=== PATIENT | female | born 1995 | race Caucasian/White ===

== ENCOUNTER 2019-06-07 10:30 | Inpatient (IN) ==
[2019-06-07] MEDS ORDERED: ONDANSETRON 4 MG/2 ML VIAL IV PRN (10:39)
[2019-06-07] MEDS ORDERED: MEPERIDINE 50 MG/1 ML VIAL IV PRN (10:39)
[2019-06-07] MEDS ORDERED: BUTORPHANOL 2 MG/ML VIAL IV PRN (10:39)
[2019-06-07 11:05] LABS: Basophils % 0.3 % (0.0-0.8); Eosinophils # 0.1 10*3/uL (0.0-0.87); Eosinophils % 0.9 % (0.00-10.9); Hematocrit 35.6 VOL% (35.7-47.0); Hemoglobin 11.7 GM/DL (12.0-16.0); Immature Granulocytes % 0.5 %; Immature Granulocytes Absolute 0.05 #; Lymphocytes % 18.8 % (21.3-54.2); Mean Corpuscular HGB Conc 32.9 GM/DL (32-36); Mean Corpuscular Volume 88.6 FL (87-102); Mean Platelet Volume 10.6 FL (9.6-12.0); Monocytes % 9.7 % (1.7-12.7); Neutrophils % 69.8 % (38.7-73.9); Platelet Count 263 T/CUMM (130-400); Red Blood Count 4.02 MC/CUMM (3.8-5.5); Red Cell Distribution Width 12.6 % (9.3-17.3); White Blood Count 10.6 T/CUMM (4-12)
[2019-06-07] MEDS: LACTATED RINGERS 1,000 ML IV SCH ×2 (19:19→20:53)
[2019-06-07] MEDS: OXYTOCIN/LR 20 UNIT/1,000 ML BAG IV SCH (19:19)
[2019-06-07] MEDS ORDERED: FAMOTIDINE 20 MG/2 ML VIAL IV ONE (19:51)
[2019-06-07] MEDS ORDERED: PROMETHAZINE 25 MG/1 ML VIAL IM ONE (19:51)
[2019-06-07] MEDS ORDERED: NALOXONE 0.4 MG/ML VIAL IV PRN (19:51)
[2019-06-07] MEDS ORDERED: CITRIC ACID/SODIUM CITRATE 30 ML UDCUP PO ONE (19:51)
[2019-06-07] MEDS ORDERED: hydrOXYzine HCL 25 MG/1 ML VIAL IM PRN (19:51)
[2019-06-07] MEDS ORDERED: ONDANSETRON 4 MG/2 ML VIAL IV ONE (19:51)
[2019-06-07] MEDS ORDERED: diphenhydrAMINE 50 MG/1 ML VIAL IV PRN ×2 (19:51)
[2019-06-07] MEDS ORDERED: ePHEDrine 50 MG/ML AMP IV PRN (19:51)
[2019-06-07] MEDS: fentaNYL 2 MCG/ROPIV 0.2% EPID 100 ML EPIDURAL SCH (20:53)
[2019-06-07 21:46] LABS: Apearance,Urine CLEAR (Clear); Bilirubin,Urine Negative (Negative); Blood, Urine Negative (Negative); Glucose,Urine (UA) Negative (Negative); Ketones,Urine Negative (Negative); Nitrite,Urine Negative (Negative); Protein,Urine Negative; Squamous Epithelial Cell,Urine Occasional /HPF (0-10); Urine Color Colorless (Yellow); Urine Specific Gravity 1.002 (1.001-1.035); Urine Urobilinogen < 2.0 EU/DL (0.2-1.0)
[2019-06-08] MEDS: LACTATED RINGERS 1,000 ML IV SCH (03:49)
[2019-06-08] MEDS ORDERED: METHYLERGONOVINE 0.2 MG/1 ML AMP ONE (05:57)
[2019-06-08] MEDS ORDERED: miSOPROStoL 200 MCG TABLET ONE (05:57)
[2019-06-08] MEDS ORDERED: CARBOPROST TROMETHAMINE 250 MCG/ML AMP IM ONE (05:57)
[2019-06-08] MEDS: fentaNYL 2 MCG/ROPIV 0.2% EPID 100 ML EPIDURAL SCH (06:16)
[2019-06-08] MEDS: OXYTOCIN/LR 20 UNIT/1,000 ML BAG IV SCH (09:34)
[2019-06-08] MEDS ORDERED: OXYTOCIN/LR 20 UNIT/1,000 ML BAG IV ONE (11:02)
[2019-06-08] MEDS ORDERED: BISACODYL 10 MG SUPP RECTAL PRN (11:02)
[2019-06-08] MEDS ORDERED: MEASLES/MUMPS/RUBELLA VACCINE 0.5 ML VIAL SUBCUT ONE (11:02)
[2019-06-08] MEDS ORDERED: WITCH HAZEL PADS 100/JAR TOP PRN (11:02)
[2019-06-08] MEDS ORDERED: HYDROCORTISONE 2.5% RECTAL CREAM 30 GM TUBE TOP PRN (11:02)
[2019-06-08] MEDS ORDERED: ONDANSETRON 4 MG/2 ML VIAL IV PRN (11:02)
[2019-06-08] MEDS ORDERED: DIPH/TET/ACEL PERT BOOSTER VACCINE 0.5 ML VIAL IM ONE (11:02)
[2019-06-08] MEDS ORDERED: oxyCODONE/ACETAMINOPHEN 5-325 MG TABLET PO PRN (11:02)
[2019-06-08] MEDS ORDERED: ACETAMINOPHEN 325 MG TABLET PO PRN (11:02)
[2019-06-08] MEDS ORDERED: BENZOCAINE 20%/MENTHOL 0.5% SPRAY 56 GM CAN TOP PRN (11:02)
[2019-06-08] MEDS ORDERED: LANOLIN 50% CREAM 0.3 OZ TUBE TOP PRN (11:02)
[2019-06-08] MEDS ORDERED: RHO(D) IMMUNE GLOBULIN 300 MCG SYRINGE IM ONE (11:02)
[2019-06-08] MEDS: IBUPROFEN 800 MG TABLET PO PRN ×2 (12:17→19:55)
[2019-06-08] MEDS: DOCUSATE SODIUM 100 MG CAPSULE PO SCH ×2 (19:56→21:53)
[2019-06-09 06:13] LABS: Basophils % 0.2 % (0.0-0.8); Eosinophils # 0.3 10*3/uL (0.0-0.87); Eosinophils % 1.6 % (0.00-10.9); Hematocrit 30.9 VOL% (35.7-47.0); Hemoglobin 10.4 GM/DL (12.0-16.0); Immature Granulocytes % 0.6 %; Immature Granulocytes Absolute 0.09 #; Lymphocytes # 2.3 10*3/uL (1.4-4.0); Lymphocytes % 14.9 % (21.3-54.2); Mean Corpuscular HGB Conc 33.7 GM/DL (32-36); Monocytes % 8.4 % (1.7-12.7); Neutrophils % 74.3 % (38.7-73.9); Platelet Count 203 T/CUMM (130-400); Red Blood Count 3.47 MC/CUMM (3.8-5.5); Red Cell Distribution Width 13.1 % (9.3-17.3); White Blood Count 15.3 T/CUMM (4-12)
[2019-06-09] MEDS: IBUPROFEN 800 MG TABLET PO PRN ×3 (09:40→23:49)
[2019-06-09] MEDS: DOCUSATE SODIUM 100 MG CAPSULE PO SCH ×2 (09:42→20:10)
[2019-06-09] MEDS: oxyCODONE/ACETAMINOPHEN 5-325 MG TABLET PO PRN (20:10)
[2019-06-10] MEDS: IBUPROFEN 800 MG TABLET PO PRN (06:47)
[2019-06-10] MEDS: oxyCODONE/ACETAMINOPHEN 5-325 MG TABLET PO PRN (06:47)
[2019-06-10 09:44] VITALS: BP 118/68
[2019-06-10] MEDS: DOCUSATE SODIUM 100 MG CAPSULE PO SCH (10:07)
== END 2019-06-10 11:00 | disposition home or self-care (01) | DRG 806 ==
LOC: N.LDOUT 10:30 → N.LD 10:32 → N.OB 06-08 17:11
PROVIDERS: ADMIT Obstetrics & Gynecology; ATTEND Obstetrics & Gynecology

== ENCOUNTER 2022-03-25 15:11 | Inpatient (IN) ==
[2022-03-25] MEDS ORDERED: CARBOPROST TROMETHAMINE 250 MCG/ML AMP IM PRN (15:18)
[2022-03-25] MEDS ORDERED: miSOPROStoL 200 MCG TABLET RECTAL PRN (15:18)
[2022-03-25] MEDS ORDERED: METHYLERGONOVINE 0.2 MG/1 ML AMP IM PRN (15:18)
[2022-03-25] MEDS ORDERED: TRANEXAMIC ACID 1,000 MG in SODIUM CHLORIDE 0.9% 100 ML IV PRN (15:18)
[2022-03-25] MEDS ORDERED: OXYTOCIN/LR 20 UNIT/1,000 ML BAG IV ONE ×2 (15:18→22:08)
[2022-03-25] MEDS ORDERED: ONDANSETRON 4 MG/2 ML VIAL IV PRN ×2 (15:18→22:08)
[2022-03-25] MEDS ORDERED: ePHEDrine 50 MG/ML VIAL IV PRN (15:20)
[2022-03-25] MEDS ORDERED: NALOXONE 0.4 MG/ML VIAL IV PRN (15:20)
[2022-03-25] MEDS ORDERED: LACTATED RINGERS 1,000 ML IV ONE (15:20)
[2022-03-25] MEDS ORDERED: FAMOTIDINE 20 MG/2 ML VIAL IV ONE (15:20)
[2022-03-25] MEDS ORDERED: ONDANSETRON 4 MG/2 ML VIAL IV ONE (15:20)
[2022-03-25] MEDS ORDERED: PROMETHAZINE 25 MG/1 ML VIAL IM ONE (15:20)
[2022-03-25] MEDS ORDERED: hydrOXYzine HCL 25 MG/1 ML VIAL IM PRN (15:20)
[2022-03-25] MEDS ORDERED: CITRIC ACID/SODIUM CITRATE 30 ML UDCUP PO ONE (15:20)
[2022-03-25] MEDS ORDERED: diphenhydrAMINE 50 MG/1 ML VIAL IV PRN ×2 (15:20)
[2022-03-25] MEDS ORDERED: fentaNYL 2 MCG/ROPIV 0.2% EPID 100 ML EPIDURAL SCH (15:30)
[2022-03-25] MEDS ORDERED: LACTATED RINGERS 1,000 ML IV SCH (15:30)
[2022-03-25] MEDS ORDERED: OXYTOCIN/LR 20 UNIT/1,000 ML BAG IV SCH (15:30)
[2022-03-25 15:38] LABS: Basophils % 0.2 % (0.0-0.8); Eosinophils # 0.1 10*3/uL (0.0-0.87); Eosinophils % 0.8 % (0.00-10.9); Hematocrit 35.1 VOL% (35.7-47.0); Hemoglobin 10.9 GM/DL (12.0-16.0); Immature Granulocytes % 0.5 %; Immature Granulocytes Absolute 0.05 #; Lymphocytes # 1.9 10*3/uL (1.4-4.0); Lymphocytes % 18.6 % (21.3-54.2); Mean Corpuscular HGB Conc 31.1 GM/DL (32-36); Mean Platelet Volume 11.2 FL (9.6-12.0); Monocytes # 0.9 10*3/uL (0.11-0.8); Monocytes % 9.3 % (1.7-12.7); Neutrophils % 70.6 % (38.7-73.9); Platelet Count 280 T/CUMM (130-400); Red Blood Count 4.28 MC/CUMM (3.8-5.5); Red Cell Distribution Width 14.7 % (9.3-17.3)
[2022-03-25 15:57] LABS: Alanine Aminotransferase 54 U/L (13-56); Albumin 2.6 G/DL (3.4-5.0); Alkaline Phosphatase 200 U/L (45-117); Aspartate Amino Transferase 24 U/L (0-37); Bilirubin,Total < 0.39 MG/DL (0.20-1.00); Blood Urea Nitrogen 9 MG/DL (7-18); Carbon Dioxide 25 MMOL/L (21-32); Chloride 105 MMOL/L (98-107); Glucose 82 MG/DL (74-106); Osmolality,Calculated 270.8 MOS/KG (273-304); Potassium 3.9 MMOL/L (3.5-5.1); Sodium 137 MMOL/L (136-145); Total Protein 7.6 G/DL (6.4-8.2)
[2022-03-25] MEDS ORDERED: TRANEXAMIC ACID 1,000 MG/10 ML VIAL ONE (21:33)
[2022-03-25] MEDS ORDERED: METHYLERGONOVINE 0.2 MG/1 ML AMP ONE (21:33)
[2022-03-25] MEDS ORDERED: SODIUM CHLORIDE 0.9% 0 ML IV ONE (21:33)
[2022-03-25] MEDS ORDERED: miSOPROStoL 200 MCG TABLET ONE (21:33)
[2022-03-25] MEDS ORDERED: CARBOPROST TROMETHAMINE 250 MCG/ML AMP IM ONE (21:34)
[2022-03-25 21:56] LABS: Cord Arterial Blood HCO3 20.8 MMOL/L
[2022-03-25 21:59] LABS: Cord Venous Blood HCO3 22.3 MMOL/L; Cord Venous Blood PCO2 38.2 MMHG; Cord Venous Blood PO2 33.2
[2022-03-25] MEDS ORDERED: RHO(D) IMMUNE GLOBULIN 300 MCG SYRINGE IM ONE (22:08)
[2022-03-25] MEDS ORDERED: LANOLIN 50% CREAM 0.3 OZ TUBE TOP PRN (22:08)
[2022-03-25] MEDS ORDERED: BISACODYL 10 MG SUPP RECTAL PRN (22:08)
[2022-03-25] MEDS ORDERED: MEASLES/MUMPS/RUBELLA VACCINE 0.5 ML VIAL SUBCUT ONE (22:08)
[2022-03-25] MEDS ORDERED: BENZOCAINE 20%/MENTHOL 0.5% SPRAY 56 GM CAN TOP PRN (22:08)
[2022-03-25] MEDS ORDERED: HYDROCORTISONE 2.5% RECTAL CREAM 30 GM TUBE TOP PRN (22:08)
[2022-03-25] MEDS ORDERED: DIPH/TET/ACEL PERT BOOSTER VACCINE 0.5 ML VIAL IM ONE (22:08)
[2022-03-25] MEDS ORDERED: ACETAMINOPHEN 325 MG TABLET PO PRN (22:08)
[2022-03-25] MEDS ORDERED: WITCH HAZEL PADS 100/JAR TOP PRN (22:08)
[2022-03-26] MEDS: IBUPROFEN 800 MG TABLET PO PRN ×3 (00:18→20:31)
[2022-03-26] MEDS: oxyCODONE/ACETAMINOPHEN 5-325 MG TABLET PO PRN ×4 (01:48→21:30)
[2022-03-26 05:24] LABS: Basophils % 0.2 % (0.0-0.8); Eosinophils % 0.3 % (0.00-10.9); Hematocrit 27.9 VOL% (35.7-47.0); Hemoglobin 8.7 GM/DL (12.0-16.0); Immature Granulocytes % 0.8 %; Immature Granulocytes Absolute 0.09 #; Lymphocytes # 1.2 10*3/uL (1.4-4.0); Lymphocytes % 10.3 % (21.3-54.2); Mean Corpuscular HGB Conc 31.2 GM/DL (32-36); Mean Corpuscular Volume 79.7 FL (87-102); Mean Platelet Volume 11.2 FL (9.6-12.0); Monocytes % 8.8 % (1.7-12.7); Neutrophils % 79.6 % (38.7-73.9); Platelet Count 203 T/CUMM (130-400); Red Cell Distribution Width 14.7 % (9.3-17.3); White Blood Count 11.9 T/CUMM (4-12)
[2022-03-26] MEDS: MULTIVITAMIN (PRENATAL) TABLET PO SCH (09:04)
[2022-03-26] MEDS: DOCUSATE SODIUM 100 MG CAPSULE PO SCH ×2 (09:04→20:31)
[2022-03-26] MEDS ORDERED: RHO(D) IMMUNE GLOBULIN 300 MCG SYRINGE IM ONE (18:20)
[2022-03-27 04:44] VITALS: BP 119/72
[2022-03-27] MEDS: IBUPROFEN 800 MG TABLET PO PRN (06:15)
[2022-03-27] MEDS: DOCUSATE SODIUM 100 MG CAPSULE PO SCH (10:48)
[2022-03-27] MEDS: MULTIVITAMIN (PRENATAL) TABLET PO SCH (10:48)
== END 2022-03-27 12:30 | disposition home or self-care (01) | DRG 807 ==
LOC: N.LD 15:11 → N.OB 03-26 00:55
PROVIDERS: ADMIT Obstetrics & Gynecology; ATTEND Obstetrics & Gynecology